=== PATIENT | female | born 1950 | race Caucasian/White ===

== ENCOUNTER → 2023-01-11 | Outpatient (CLI) | payer MEDICARE ==
--- NOTE | 2023-01-11 15:16 | US ---
EXAMINATION TYPE: US kidneys/renal and bladder DATE OF EXAM: 01/11/2023 COMPARISON: NONE CLINICAL INDICATION: Female, 72 years old with history of N18.2 CHRONIC KIDNEY DISEASE, STAGE 2 (MILD ); CKD EXAM MEASUREMENTS: Right Kidney: 10.8 x 5.2 x 4.6 cm Left Kidney: 10.1 x 4.2 x 5.6 cm Both grayscale and color Doppler ultrasound images of both kidneys and urinary bladder were obtained. Right Kidney: Anechoic appearance medially- mild hydronephrosis. Anechoic area seen upper pole: 1.6 x 1.3 x 1.6 cm. Left Kidney: Anechoic area seen lower pole: 1.3 x 1.6 x 2.6 cm. Bladder: Appears wnl Bilateral Jets seen: Yes Mild right hydronephrosis. Simple appearing cyst within the right upper pole measuring up to 1.6 cm. Another cyst identified within the lower pole of the left kidney measuring up to 1.3 cm. Corticomedul yo differentiation is maintained bilaterally. No nephrolithiasis identified bilaterally. Urinary bl adder is within normal limits with bilateral ureteral jets identified. IMPRESSION: 1. Mild right hydronephrosis. 2. Bilateral simple renal cysts.
== END | disposition home or self-care (01) ==
LOC: RADUSWWP 14:07
PROVIDERS: ATTEND Family Medicine
DX: N18.2 Chronic kidney disease, stage 2 (mild) (principal); N13.30 Unspecified hydronephrosis; N28.1 Cyst of kidney, acquired
CPT/HCPCS: 76770

== ENCOUNTER → 2023-04-20 | Outpatient (CLI) | payer MEDICARE ==
--- NOTE | 2023-04-20 13:44 | CT ---
EXAMINATION TYPE: CT abdomen pelvis wo con CT DLP: 974 mGycm, Automated exposure control for dose reduction was used. DATE OF EXAM: 04/20/2023 1:06 PM COMPARISON: Ultrasound 01/11/2023 CLINICAL INDICATION:Female, 72 years old with history of KSP; N13.0 HYDRONEPHROSIS RIGHT; Hydronephro sis, right TECHNIQUE: Axial CT of the abdomen and pelvis. Sagittal and coronal reformats were created on a [employer] workstation. Contrast used: mL of , (none if empty) Oral contrast used: without Oral Contrast (none if empty) FINDINGS: LOWER CHEST: The heart is enlarged for size. ABDOMEN LIVER: Unremarkable GALLBLADDER AND BILE DUCTS: The gallbladder surgically absent. PANCREAS: Unremarkable. SPLEEN: Unremarkable. ADRENAL GLANDS: Unremarkable. KIDNEYS AND URETERS: Suspected bilateral peripelvic renal cysts versus pelvocaliectasis. No obstructi ng calculi. PELVIS BLADDER: Unremarkable REPRODUCTIVE: Unremarkable. ABDOMEN & PELVIS STOMACH AND BOWEL: No evidence of bowel obstruction. Postsurgical changes to the gastric lumen. Post surgical changes to the bowel. PERITONEUM/RETROPERITONEUM: No evidence of pneumoperitoneum or free fluid. VASCULATURE: Pelvic phleboliths are present MUSCULOSKELETAL: No acute osseous abnormalities. Moderate disc degeneration changes are present throu ghout the thoracolumbar spine. LYMPH NODES: No gross evidence for lymphadenopathy. SOFT TISSUE/ABDOMINAL WALL: Unremarkable IMPRESSION: 1. Peripelvic renal cysts bilaterally and/or pelvocaliectasis and less likely hydronephrosis. Comple te evaluation of the kidneys and collecting system with CT urogram is recommended. No obstructing rhiannon culi visualized. 2. Postsurgical changes of the gallbladder and stomach.
== END | disposition home or self-care (01) ==
LOC: RADCTMAIN 12:13
PROVIDERS: ATTEND Urology
DX: N13.0 Hydronephrosis with ureteropelvic junction obstruction (principal); N28.1 Cyst of kidney, acquired
CPT/HCPCS: 74176

== ENCOUNTER → 2023-04-26 | Outpatient (CLI) | payer MEDICARE ==
[2023-04-26 14:48] VITALS: BP 140/80; PULSE 73; TEMP 97.8; BMI 34.5
--- NOTE | 2023-04-26 15:43 | P.HPBAR ---
Bariatric H&P - History & Physicial H&P Date: 04/26/23 History & Physicial: Visit/CC: new patient Patient initial contact: Initial weight: Initial weight in pounds: Height: 5 ft 6 in Initial BMI: Last weight: Current weight: 97.069 kg Current weight in pounds: 214.00 Current BMI: 34.5 [place] body weight (based on NIH guidelines): 58.967 kg Excess body weight loss: The patient is a 72 year-old F who presents for Bariatric Assessment. [facility] for gastric bypass in 2002. She has been lost to follow up. She has kidney disease stage [address] Valdez right kidney bigger than the left kidney. She is looking for management of her weight loss. Highest weight 300 pounds. Lowest weight 125 pounds. She is up to 214 pounds. She lost weight by dietary restriction. She wants 155 to 160 pounds. She wants to lose 50 pounds. No food getting stuck. No abdominal pain. She has lap approach. Gall bladder was removed. She had complications with leak and now is doing better. She has tummy tuck. Had breast reconstruction. She liked her reconstruction surgery. She denies current problems. She can lose weight. Fluids. She drinks caffeine daily 32 oz. Past Medical History Past Medical History: Hypertension, Renal Disease Additional Past Medical History / Comment(s): stage 2 kidney disease History of Any Multi-Drug Resistant Organisms: None Reported Past Surgical History: Back Surgery, Bariatric Surgery, Breast Surgery, Cholecystectomy, Tubal Ligation Additional Past Surgical History / Comment(s): RYGB 2002, skin removal 2004, breast reduction/lift 2005, back surgery 2012 Past Anesthesia/Blood Transfusion Reactions: No Reported Reaction Past Psychological History: No Psychological Hx Reported Smoking Status: Former smoker Past Alcohol Use History: None Reported Past Drug Use History: None Reported Surgical - Exam Vital Signs Temp Pulse BP 97.8 F 73 140/80 04/26/23 14:33 04/26/23 14:33 04/26/23 14:33 Bariatric Checklist Checklist: Plan: Checklist: EGD: 1. Hiatal hernia: 2. H. Pylori: HgbA1c: Vitamin D: Smoking: Primary care physician referral: Dr. Winkler Psychiatry clearance: Cardiology clearance: Sleep study: Diet journal: VTE risk score: VTE risk level: Rehab needs at discharge:
== END ==
LOC: BARWHC3 13:42
PROVIDERS: ATTEND Surgery Plastic and Reconstructive Surgery
DX: Z53.9 Procedure and treatment not carried out, unspecified reason (principal)
CPT/HCPCS: 99212

== ENCOUNTER → 2023-04-27 | Outpatient (CLI) | payer MEDICARE ==
[2023-04-27 14:59] LABS: INR 0.9 (<1.2); Partial Thromboplastin Time 24.9 sec (22.0-30.0); Prothrombin Time 9.8 sec (9.0-12.0)
[2023-04-27 20:26] LABS: Prealbumin 21.2 mg/dL (18.0-42.0)
[2023-04-27 20:28] LABS: % Iron Saturation 36.75 (12.00-45.00); ALT 16 U/L (8-44); AST 20 U/L (13-35); Albumin 4.1 d/dL (3.8-4.9); Albumin/Globulin Ratio 1.71 Ratio (1.60-3.17); Alkaline Phosphatase 134 U/L (41-126); Blood Urea Nitrogen 14.3 mg/dL (9.0-27.0); Carbon Dioxide 25.4 mmol/L (21.6-31.8); Chloride 104 mmol/L (96-109); Chol/HDL Ratio 4.13 Ratio; Globulin 2.4 d/dL (1.6-3.3); Glucose 106 mg/dL (70-110); Iron 104 UG/DL (50-170); LDL Cholesterol,Calculated 134.5 mg/dL (0.0-131.0); Magnesium 2.1 mg/dL (1.5-2.4); Phosphorus 3.2 mg/dL (2.4-5.1); Potassium 3.8 mmol/L (3.5-5.5); Sodium 140 mmol/L (135-145); Total Bilirubin 0.3 mg/dL (0.3-1.2); Total Iron Binding Capacity 283 UG/DL (228-460); Total Protein 6.5 d/dL (6.2-8.2)
[2023-04-27 23:45] LABS: HCT 38.2 % (37.2-46.3); HGB 12.4 d/dL (12.0-15.0); MCH 30.2 pg (27.0-32.0); MCHC 32.5 d/dL (32.0-37.0); MCV 93.2 FL (80.0-97.0); Mean Platelet Volume 10.6 FL (9.5-12.2); NRBC Per 100 WBC 0 X 10*3/uL (0.00-0.01); Platelet Count 259 X 10*3/uL (140-440); RDW 15.2 % (11.5-14.5); WBC 5.84 X 10*3/uL (4.50-10.00)
== END | disposition home or self-care (01) ==
LOC: LABWHC1 13:00
PROVIDERS: ATTEND Surgery Plastic and Reconstructive Surgery
DX: E66.01 Morbid (severe) obesity due to excess calories (principal); E89.1 Postprocedural hypoinsulinemia; D50.8 Other iron deficiency anemias; K91.2 Postsurgical malabsorption, not elsewhere classified; E44.0 Moderate protein-calorie malnutrition; E44.1 Mild protein-calorie malnutrition; E45 Retarded development following protein-calorie malnutrition; E46 Unspecified protein-calorie malnutrition; E55.9 Vitamin D deficiency, unspecified; K74.1 Hepatic sclerosis; N19 Unspecified kidney failure; T56.894A Toxic effect of other metals, undetermined, initial encounter; K50.90 Crohn's disease, unspecified, without complications
CPT/HCPCS: 36415; 80053; 80061; 82306; 82525; 82607; 82728; 82746; 83036; 83540; 83550; 83735; 83970; 84100; 84134; 84255; 84425; 84443; 84590; 84630; 85027; 85610; 85730

== ENCOUNTER → 2023-06-21 | Outpatient (CLI) | payer MEDICARE ==
[2023-06-21 14:26] VITALS: BP 114/73; PULSE 66; TEMP 97.7; BMI 33.9
--- NOTE | 2023-06-21 15:05 | P.BASOAP ---
Subjective Progress Note Date: 06/21/23 She needs kidney surgery. She is doing ok. Labs. She is on Zinc. She needs protein 60 grams daily. Jul 05 follow-up. Risk of abdominal pain including epigastric, left upper quadrant pain and dysphagia reviewed for gastric bypass. Objective - Vital Signs Vital signs: Vital Signs Temp 97.7 F 06/21/23 14:21 Pulse 66 06/21/23 14:21 Resp BP 114/73 06/21/23 14:21 Pulse Ox FiO2 Intake & Output 06/20/23 06/21/23 06/21/23 18:59 06:59 18:59 Weight 95.254 kg Assessment/Plan Plan: Date: 06/21/23 Initial Weight: Initial BMI: Current Weight: 95.254 kg Current BMI: 33.9 Type of Surgery: Total Volume in Band: Previous Volume: Volume Removed: Volume Added: Band Size:
== END ==
LOC: BARWHC3 13:33
PROVIDERS: ATTEND Surgery Plastic and Reconstructive Surgery
DX: Z53.9 Procedure and treatment not carried out, unspecified reason (principal)
CPT/HCPCS: 99211

== ENCOUNTER → 2024-08-29 | Outpatient (CLI) | payer MEDICARE ==
--- NOTE | 2024-08-30 17:31 | MM ---
Reason for Exam: Screening (asymptomatic). Last mammogram was performed 1 year(s) and 5 month(s) ago. Patient History: Menarche at age 12. First Full-Term at age 17. Postmenopausal. Bilateral Reduction. Maternal grandmother had breast cancer. Maternal aunt had breast cancer. Maternal aunt had breast cancer. Risk Values: Arina 5 year model risk: 1.3%. NCI Lifetime model risk: 3.0%. Prior Study Comparison: 12/21/2018 Bilateral Screening Mammogram, Unknown. 12/30/2020 Bilateral Screening Mammogram, Unknown. 03/17/2022 Bilateral Screening Mammogram, Unknown. 03/20/2023 Bilateral Screening Mammogram, Unknown. Tissue Density: There are scattered areas of fibroglandular density. Findings: Analyzed By CAD. There is no suspicious group of microcalcifications or new suspicious mass in either breast. Overall Assessment: Negative, BI-RAD 1 Management: Screening Mammogram of both breasts in 1 year. . Patient should continue monthly self-breast exams. A clinical breast exam by your physician is recommended on an annual basis. This exam should not preclude additional follow-up of suspicious palpable abnormalities. Note on Arina scores and lifetime risk: 1. A Arina score greater than 3% is considered moderate risk. If this is the case, consider specialist referral to assess eligibility for a risk reducing agent. 2. If overall lifetime risk for the development of breast cancer is 20% or higher, the patient may qualify for future screening with alternating mammogram and breast MRI. [facility], , 08/30/2024 5:28 PM. Electronically signed and approved by: Eliud Marin M.D. Radiologist
== END | disposition home or self-care (01) ==
LOC: RADMAMWWP 08:01
PROVIDERS: ATTEND Family Medicine
DX: Z12.31 Encounter for screening mammogram for malignant neoplasm of breast (principal); R92.323 Mammographic fibroglandular density, bilateral breasts; Z78.0 Asymptomatic menopausal state; Z80.3 Family history of malignant neoplasm of breast
CPT/HCPCS: 77063; 77067